=== PATIENT | female | born 1960 ===

== ENCOUNTER 2016-11-24 06:10 | Day surgery (SDC) | payer BC ==
[2016-11-11 13:54] VITALS: BMI 32.5
[2016-11-24] MEDS ORDERED: Bupivacaine-Epi 0.25%-1:200,000 PF Inj ONE (07:28)
[2016-11-24] MEDS ORDERED: Lidocaine 1% Inj (20ml) ONE (07:29)
[2016-11-24] MEDS ORDERED: Midazolam 2 MG/2 ML VIAL ONE (07:40)
[2016-11-24] MEDS ORDERED: Propofol 10 mg/ml Inj (20 ML) ONE (07:40)
[2016-11-24] MEDS ORDERED: Lactated Ringer's 1,000 ML IV ONE ×2 (07:50→08:47)
[2016-11-24] MEDS ORDERED: ceFAZolin IV 1 gm in Dextrose 2 GM/100 ML BAG IVPB ONE (08:09)
[2016-11-24] MEDS ORDERED: Phenylephrine 10 mg/ml Inj ONE (08:32)
[2016-11-24] MEDS ORDERED: Neostigmine Methylsulfate 3mg/3ml Syringe IV ONE (08:51)
--- NOTE | 2016-11-24 09:18 | PCM.SURG1 ---
Surgeon's Initial Post Op Note - Surgeon's Notes Surgeon: Angelica Speech And Drama Teacher: Lloyd PGY3, Alex GLEZ Type of Anesthesia: General Endo, Local Pre-Operative Diagnosis: cholelithiasis Operative Findings: cholelithiasis Post-Operative Diagnosis: same Operation Performed: robotic assisted cholecystectomy Specimen/Specimens Removed: gallbladder Estimated Blood Loss: EBL {In ML}: 5 Blood Products Given: N/A Drains Used: No Drains Post-Op Condition: Good Date of Surgery/Procedure: 11/24/16 Time of Surgery/Procedure: 09:17
[2016-11-24] MEDS: HYDROmorphone 0.5 mg/0.5 ml ISec IVP PRN ×3 (09:32→10:55)
--- NOTE | 2016-11-24 10:16 | OP ---
PROCEDURE DATE: 11/24/2016 PREOPERATIVE DIAGNOSES: Chronic cholecystitis and cholelithiasis. POSTOPERATIVE DIAGNOSES: Chronic cholecystitis and cholelithiasis. PROCEDURE DONE: Robotic cholecystectomy. SURGEON: Lucas Dominguez MD ASSISTANTS: EMILIA Hua and Ernst Ibrahim, [facility]-3 resident. TYPE OF ANESTHESIA: General endotracheal tube anesthesia. ESTIMATED BLOOD LOSS: Around 10 mL. DRAIN: None. PATHOLOGY: Gallbladder with the gallstones was sent for the pathology. COMPLICATIONS: None. INTRAOPERATIVE FINDINGS: The patient had changes of chronic cholecystitis and cholelithiasis. DESCRIPTION OF PROCEDURE: On intraoperative steps, this 55-year-old female was diagnosed with chronic cholecystitis and cholelithiasis and the patient was consented for robotic cholecystectomy, possible open, brought to the OR, placed supine on the operating table. After induction of the anesthesia, abdomen was prepped and draped in the usual sterile fashion and supraumbilical transverse incision was made. After incising skin and subcutaneous tissue, the fascia was incised, robotic camera port was placed, another three 8-mm robotic camera ports were placed in the upper abdomen. Robot was brought in. Camera arm as well as arm #1 and arm #2 were docked and gallbladder was retracted cranially. Calot's triangle dissection was done. Cystic duct and cystic artery were clipped at 3 places and cut in between 2 clips nearby gallbladder and the gallbladder was dissected free from the gallbladder fossa, taken in EndoCatch bag, taken out through the umbilical port site and sent off the table for the pathology. There was a proper hemostasis in each and every part of the procedure. All the instruments were taken out. The robot was undocked. All the ports were taken out under vision, pneumo was deflated. The umbilical port site was closed in two layers, the fascia with 0 Vicryl interrupted sutures, skin with 4-0 Monocryl and dry sterile dressing was applied. The patient was extubated in OR, sent to the postanesthesia care unit in stable condition. Lucas Dominguez MD
[2016-11-24 12:09] VITALS: RESP 16
[2016-11-24 12:54] VITALS: BP 106/60; PULSE 73; TEMP 97.3; O2SAT 100
== END 2016-11-24 12:35 | disposition home or self-care (01) ==
LOC: C.SDS 06:10
PROVIDERS: ATTEND Surgery Surgical Critical Care
DX: K80.10 Calculus of gallbladder with chronic cholecystitis without obstruction (principal)
CPT/HCPCS: 47562; 88304; J0690; J1100; J1170; J2250; J2370; J2405; J2704; J2710; J3010; J7030; J7120; S2900